=== PATIENT | male | born 1985 ===

== ENCOUNTER 2023-05-30 18:54 | Emergency (ER) | payer OTHER ==
[~2023-05-30] VITALS: Ht 167.6 cm; Wt 68.0 kg
[2023-05-30 19:22] VITALS: BP 120/78
== END 2023-05-30 19:30 | disposition home or self-care (01) ==
LOC: ER 18:54
DX: T67.5XXA Heat exhaustion, unspecified, initial encounter (principal); E86.0 Dehydration; X58.XXXA Exposure to other specified factors, initial encounter
CPT/HCPCS: 99283